=== PATIENT | female | born 1995 | race Caucasian/White ===

== ENCOUNTER → 2022-12-13 | Outpatient (CLI) | payer OTHER, SELFPAY ==
--- NOTE | 2022-12-13 14:47 | US_ITS ---
INDICATION: viability EXAMINATION: Ultrasound US OB Less Than 14 Weeks TECHNIQUE: Transabdominal pelvic ultrasound was performed. Grayscale, spectral waveform, and color flow Doppler evaluation of the adnexa. COMPARISON: None. LMP: [10/09/2022 Beta-hCG: Unknown FINDINGS: UTERUS: 10.2 x 7.4 x 6.2 cm. RIGHT OVARY: Not visualized. LEFT OVARY: 2.5 x 2.3 x 1.9 cm. Normal. FREE FLUID: None. INTRAUTERINE GESTATIONAL SAC: Single. YOLK SAC: Identified POLE: Identified CRL 2.8 cm. ESTIMATED GESTATION AGE: 9 weeks 3 days. HEART MOTION: 180 bpm. PLACENTA: Not visualized due to age. SUBCHORIONIC HEMORRHAGE: None. AMNIOTIC FLUID: Qualitatively normal. US/Init OB < 14Wks US IMPRESSION: Single live intrauterine . Estimated gestational age is 9 weeks 3 days with MARKELL 07/15/2023. Electronically Signed: Nicholas Bryant MD at 16:35 EDT ,
== END | disposition home or self-care (01) ==
LOC: US 14:46
PROVIDERS: PCP Family Medicine; Referring Provider Obstetrics & Gynecology; Visit Provider Obstetrics & Gynecology
DX: Z34.90 Encounter for supervision of normal pregnancy, unspecified, unspecified trimester (principal)
CPT/HCPCS: 76801

== ENCOUNTER → 2022-12-18 | Outpatient (CLI) | payer OTHER, SELFPAY ==
[2022-12-21 14:17] LABS: Chlamydia By Nucleic Acid AMP Negative (Negative); Gonococcus By Nucleic Acid AMP Negative (Negative)
[2022-12-24 11:39] LABS: HPV Reflexed? NOT INDICATED
== END | disposition home or self-care (01) ==
PROVIDERS: PCP Family Medicine; Referring Provider Obstetrics & Gynecology; Visit Provider Obstetrics & Gynecology
DX: Z34.90 Encounter for supervision of normal pregnancy, unspecified, unspecified trimester (principal)
CPT/HCPCS: 87086; 87088; 87491; 87591; 88175; G0145

== ENCOUNTER → 2022-12-18 | Outpatient (CLI) | payer OTHER, SELFPAY ==
[2022-12-18 11:24] LABS: Absolute Lymphocyte Count 1.83 X10^3/uL (0.83-4.51); Absolute Neutrophil Count 7.6 X10^3/uL (2.0-7.7); Basophil# 0.04 X10^3/uL; Basophil% 0.4 % (0-1); Eosinophil# 0.06 X10^3/uL; Eosinophils% 0.6 % (0-5); Hematocrit 44.3 % (37-47); Hemoglobin 14.8 g/dL (12.0-15.0); Lymphocyte # 1.83 X10^3/ul (0.83-4.51); Lymphocyte % 18.1 % (19-41); Mean Corp Hgb Conc 33.4 g/dL (32-36); Mean Corpuscular Hgb 28.9 pg (27.0-32.0); Mean Corpuscular Volume 86.5 fL (81-99); Mean Platelet Vol. 11.2 fl (6.2-12.0); Monocyte# 0.51 X10^3/uL; NRBC Flagged by Analyzer 0 % (0-5); Neutrophil # 7.64 X10^3/uL (2.7-7.7); Neutrophil % 75.6 % (47-70); Platelet Count 251 K/mm3 (150-450); RBC Distribution Width CV 12.9 % (11.6-14.6); RBC Distribution Width SD 40.6 fl (35.1-43.9); Red Blood Count 5.12 M/mm3 (4.2-5.4); White Blood Count 10.1 K/mm3 (4.4-11.0)
[2022-12-18 12:09] LABS: NATERA MAILED SPECIMEN
[2022-12-18 13:12] LABS: HIV - WCH Non-Reactive (Nonreactive); Hepatitis B Surface Antigen Non-Reactive (Nonreactive); Hepatitis C Antibody Non-Reactive (Nonreactive); Rubella IgG Reactive (Nonreactive); Syphilis Antibodies Non-reactive
== END | disposition home or self-care (01) ==
LOC: LAB 11:05
PROVIDERS: PCP Family Medicine; Referring Provider Obstetrics & Gynecology; Visit Provider Obstetrics & Gynecology
DX: Z34.81 Encounter for supervision of other normal pregnancy, first trimester (principal); Z31.430 Encounter of female for testing for genetic disease carrier status for procreative management
CPT/HCPCS: 36415; 85025; 86703; 86762; 86780; 86803; 86850; 86900; 86901; 87340

== ENCOUNTER → 2023-04-09 | Outpatient (CLI) | payer OTHER, SELFPAY ==
[2023-04-09 15:39] LABS: Absolute Lymphocyte Count 2.11 X10^3/uL (0.83-4.51); Absolute Neutrophil Count 10.2 X10^3/uL (2.0-7.7); Basophil# 0.05 X10^3/uL; Basophil% 0.4 % (0-1); Eosinophil# 0.07 X10^3/uL; Eosinophils% 0.5 % (0-5); Hematocrit 38.2 % (37-47); Hemoglobin 12.4 g/dL (12.0-15.0); Lymphocyte # 2.11 X10^3/ul (0.83-4.51); Lymphocyte % 15.9 % (19-41); Mean Corp Hgb Conc 32.5 g/dL (32-36); Mean Corpuscular Hgb 29.4 pg (27.0-32.0); Mean Corpuscular Volume 90.5 fL (81-99); Mean Platelet Vol. 11.5 fl (6.2-12.0); Monocyte# 0.73 X10^3/uL; Monocyte% 5.5 % (0-10); NRBC Flagged by Analyzer 0 % (0-5); Neutrophil # 10.18 X10^3/uL (2.7-7.7); Neutrophil % 76.9 % (47-70); Platelet Count 211 K/mm3 (150-450); RBC Distribution Width CV 13.5 % (11.6-14.6); RBC Distribution Width SD 44.5 fl (35.1-43.9); Red Blood Count 4.22 M/mm3 (4.2-5.4); White Blood Count 13.3 K/mm3 (4.4-11.0)
[2023-04-09 16:51] LABS: Glucose Challenge Gest 1H 50g 118 mg/dL (70-140)
[2023-04-09 17:37] LABS: HIV - WCH Non-Reactive (Nonreactive); Syphilis Antibodies Non-reactive
== END | disposition home or self-care (01) ==
LOC: LAB 15:11
PROVIDERS: PCP Family Medicine; Visit Provider Nurse Practitioner Women's Health
DX: Z34.90 Encounter for supervision of normal pregnancy, unspecified, unspecified trimester (principal)
CPT/HCPCS: 36415; 82950; 85025; 86703; 86780

== ENCOUNTER 2023-04-21 18:10 | Outpatient (CLI) | payer OTHER, SELFPAY ==
[2023-04-21 18:27] VITALS: BMI 33.0
[2023-04-21 18:28] VITALS: BP 125/75; PULSE 126; PULSE 127; O2SAT 97
[2023-04-21 18:31] VITALS: BP 125/75; PULSE 120; TEMP 37.6; O2SAT 97
[2023-04-21 18:33] VITALS: PULSE 123; O2SAT 96
[2023-04-21 18:38] VITALS: PULSE 121; O2SAT 96
[2023-04-21 19:01] LABS: Mucous, Urine 0 SEEN /hpf (<or=2+); Red Blood Cells-Urine 0 SEEN /hpf (0-5)
[2023-04-21 19:03] LABS: Color, Urine Yellow (Yellow); Glucose, Dipstick Normal (Normal); Ketone-Dipstick Negative (Negative); Leukocyte Esterase-Dipstick Negative /ul (Negative); Nitrite-Dipstick Negative (Negative); Occult Blood-Urine Negative /ul (Negative); Protein-Dipstick 15 mg/dl (Negative); Urine Bilirubin Dipstick Negative (Negative); Urine Clarity Clear (Clear); Urine Urobilinogen Normal (Normal)
[2023-04-21 19:12] LABS: Bacteria 1+ /hpf (None Seen); Squamous Epithelial Cells - UA 0-5 SEEN /hpf (5-10); White Blood Cells 0-5 SEEN /hpf (0-5)
[2023-04-21] MEDS: Lactated Ringers 1,000 ML 999 ML IV (19:14)
[2023-04-21 19:29] LABS: Fetal Fibronectin Negative; Record Kit Lot#, fFN E3050
[2023-04-21 19:29] LABS: Absolute Lymphocyte Count 0.44 X10^3/uL (0.83-4.51); Absolute Neutrophil Count 9.2 X10^3/uL (2.0-7.7); Basophil# 0.02 X10^3/uL; Basophil% 0.2 % (0-1); Differential Indicated SCAN CRITERIA MET; Eosinophil# 0.03 X10^3/uL; Eosinophils% 0.3 % (0-5); Hematocrit 36.8 % (37-47); Hemoglobin 12.6 g/dL (12.0-15.0); Lymphocyte # 0.44 X10^3/ul (0.83-4.51); Lymphocyte % 4.2 % (19-41); Mean Corp Hgb Conc 34.2 g/dL (32-36); Mean Corpuscular Hgb 30.6 pg (27.0-32.0); Mean Corpuscular Volume 89.3 fL (81-99); Mean Platelet Vol. 11.6 fl (6.2-12.0); Monocyte# 0.81 X10^3/uL; Monocyte% 7.7 % (0-10); NRBC Flagged by Analyzer 0 % (0-5); Neutrophil # 9.18 X10^3/uL (2.7-7.7); POSITIVE DIFFERENTIAL YES; Platelet Count 145 K/mm3 (150-450); RBC Distribution Width CV 13.7 % (11.6-14.6); RBC Distribution Width SD 44.8 fl (35.1-43.9); Red Blood Count 4.12 M/mm3 (4.2-5.4); White Blood Count 10.5 K/mm3 (4.4-11.0)
--- NOTE | 2023-04-21 19:54 | US_ITS ---
EXAM: US RETROPERITONEAL LIMITED, RENAL CLINICAL INDICATION: rule out kidney stones, lower back pain consistent TECHNIQUE: Limited grayscale and color Doppler sonographic evaluation of the retroperitoneum was performed. COMPARISON: No relevant prior studies available. FINDINGS: RIGHT KIDNEY: The right kidney measures 12.5 cm in length. No hydronephrosis. No shadowing calculus. No perinephric collection is demonstrated. LEFT KIDNEY: The left kidney measures 13.2 cm in length. No hydronephrosis. No shadowing calculus. No perinephric collection is demonstrated. BLADDER: The ureteral jets are not visualized. Urinary bladder appears within normal limits. US/Kidney and Bladder IMPRESSION: No evidence of urolithiasis or hydronephrosis. Normal appearance of the bilateral kidneys. Electronically Signed: Abbe Duran DO at 21:58 EST ,
[2023-04-21 20:04] VITALS: TEMP 37.1
[2023-04-21 20:04] LABS: Differential Comment SCANNED
[2023-04-21 20:05] VITALS: BP 133/74; PULSE 113
--- NOTE | 2023-04-21 20:14 | OB.TRI.HP_ITS ---
HPI - General General Date of Service: 04/21/23 Chief Complaint: lower back pain HPI Narrative MIMI LINN, is a 27 F who presents G1 at 27.5 with worsening lower back pain throughout the day. has been having nausea and vomiting due to pain, body aches. taking 1300mg of tylenol q8 hours without relief, heating pad mildly helping. not able to get comfortable throughtout the day. active fetus. no lof/vb Maternal Data Information MARKELL Calculator Estimated Delivery Date Method Current WG Current Estimate 07/16/23 LMP (Certain) 27w 5d Other Estimates 07/15/23 Ultrasound #1 27w 6d PFSH PFSH Medical History Family history of breast cancer Home Medications multivit-min no.71-iron fum 28 mg-folate no.1 1 mg-dha 300 mg capsule (PNV- [place]) 1 cap PO DAILY 12/10/22 [History Last Taken 04/21/23 08:00] sertraline 25 mg tablet 25 mg PO DAILY 12/10/22 [History Last Taken 04/21/23 08:00] cyclobenzaprine 10 mg tablet 10 mg PO TID PRN muscle spasm #30 tabs 04/21/23 [Rx Last Taken Unknown] Allergy/AdvReac Type Severity Reaction Status Date / Time No Known Allergies Allergy Verified 04/21/23 18:33 Family History Mother Breast cancer, Onset Age: 41 Surgical History [place] teeth extracted Social History adopted: No household members: spouse current occupational status: employed current occupation: [employer] current occupational exposures/hazards: No pets and animals: Yes pets and animals: dog(s) history of recent travel: No sexually active: Yes Smoking Status: Never smoker alcohol intake: never substance use type: does not use well-balanced diet: daily or most days caffeine: Yes Type: carbonated beverages Number of servings: 1 eating out: 1-3 times/week during the past year weight has: remained stable what type of physical activity do you participate in: walking frequency: 1-2 times per week duration: 30-45 minutes/day paula/spiritism: None seatbelt use: always do you feel safe at home: Yes 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 1 Elective abortions Hx Para 0 Spontaneous abortions Hx # Term Pregnancies Ectopic pregnancies Hx # Pregnancies Multiple births # of living children Visit Details Expected Delivery Route/Plan Labor Preferences- CB/BF classes: [] labor support person: [] labor intervention preferences: [] pain management options preferred: [] cut cord/dad catch: [] : [] PP control planned: [] discussed possible routes of delivery and associated risks: [] special requests: [] Plans Covid status: [] Flu vaccine: given Tdap vaccine: [] Rhogam: NA LARC form signed: [] Problem list reviewed and updated with the most current plan of care details and appropriate orders placed. Relevant counseling for the gestational age provided. Continue routine care and follow up unless otherwise noted in visit notes/problem list details OB Flowsheet Initial Weight: Not Recorded Date -?-?-?-?-?-?-?-?-?-?-?-?- EGA Weight BP Urine Prot -?-?-?-?-?-?-?-?-?-?-?-?- Glucose FHR FuHt Pres Dilation -?-?-?-?-?-?-?-?-?-?-?-?- Effaced St Visit Note 12/18/22 -?-?-?-?-?-?-?-?-?-?-?-?- 10w 0d 180 lb 8 oz 128/84 -?-?-?-?-?-?-?-?-?-?-?-?- -?-?-?-?-?-?-?-?-?-?-?-?- JV- CRL measurin g 32.1mm equals to 10weeks 1 day. sending for formal scan. plan NIPT and carrier screen. JV- CRL measuring 32.1mm equ als to 10weeks 1 day. + FHT seen. sending for formal scan. plan NIPT and carrier screen. 01/15/23 -?-?-?-?-?-?-?-?-?-?-?-?- 14w 0d 181 lb 119/76 Negative -?-?-?-?-?-?-?-?-?-?-?-?- Negative 158 -?-?-?-?-?-?-?-?-?-?-?-?- JV- no lof, vagi nal bleeding, or cramping. 02/10/23 -?-?-?-?-?-?-?-?-?-?-?-?- 17w 5d 190 lb 118/64 Negative -?-?-?-?-?-?-?-?-?-?-?-?- Negative 146 -?-?-?-?-?-?-?-?-?-?-?-?- MH-No Vb, LOF. N o flutters yet. flu vaccine 03/12/23 -?-?-?-?-?-?-?-?-?-?-?-?- 22w 0d 201 lb 2 oz 118/82 Nega tive -?-?-?-?-?-?-?-?-?-?-?-?- Negative 151 -?-?-?-?-?-?-?-?-?-?-?-?- MH-No VB, LOF. G ood FM. Nausea resolved. 04/09/23 -?-?-?-?-?-?-?-?-?-?-?-?- 26w 0d 212 lb 6 oz 135/83 127/83 Negative -?-?-?-?-?-?-?-?-?-?-?-?- Negative 150 -?-?-?-?-?-?-?-?-?-?-?-?- JV- glucose test done today. pt complains of tailbone pain. recommend chiropractor evaluation because appears more to be located on sacrum. will call with results when in. Physical Exam Const alert General Appearance: in distress Positive for moderate HEENT Mouth: dry mucous membranes Eyes PERRL Resp normal respiratory effort and no retractions Cardio Rate: tachycardic GI normal to inspection, nondistended, normoactive bowel sounds external exam normal, appearance of the vagina normal and appearance of the cervix normal Manual OB Exam: dilated 0, effaced 0 and station high and -4 Back/Spine no CVA tenderness, normal ROM and normal to inspection Extremity normal to inspection and no calf tenderness Skin no rashes or lesions noted Neuro moves all extremities Psych mental status grossly normal NST FHR Rate Baby B Baseline: 155 Variability:: Moderate Accelerations:: 10 x 10 Decelerations:: None NST Reactive:: Yes FHR Category:: Category I Uterine Activity:: none Assessment & Plan (1) Lower back pain: COMMENT: renal ultrasound- normal urine dip negative morphine 2mg d/c home with flexeril (2) Dehydration: COMMENT: LR bolus, followed by 125ml/hr (3) Nausea: COMMENT: zofran PLAN: Plan Patient presents for triage evaluation secondary to lower back pain. cervix long, thick/closed. no contractions noted. renal ultrasound ordered to r/o renal calculi. morphine IV given x1 for pain management and IV fluids for tachycardia. FHT: Moderate variability reactive no decelerations category I tracing [place]: no Contractions Assessment and plan: Reactive NST, reassuring maternal and status patient discharged to home to follow-up in office. flexeril 10mg Rx sent to outpt pharmacy. See problem list details for additional plan information. Charges/Coding Visit Charges Office Visits / Consults: 77368 OV L3 Est Procedures Urinary/Genital 52xxx-59xxx: 65795-03 non-stress test Interp
[2023-04-21] MEDS: Lactated Ringers 1,000 ML 125 ML IV (20:16)
[2023-04-21] MEDS: Morphine 2 MG/ML Syringe IV (20:16)
[2023-04-21] MEDS: cycloBENZAPRine HCl 10 MG Tablet PO (22:16)
== END 2023-04-21 22:30 | disposition home or self-care (01) ==
LOC: WPOUT 18:17 → WP 18:17
PROVIDERS: PCP Family Medicine; Referring Provider Registered Nurse; Visit Provider Registered Nurse
DX: O99.891 Other specified diseases and conditions complicating pregnancy (principal); M54.50 Low back pain, unspecified; Z3A.27 27 weeks gestation of pregnancy; R11.0 Nausea; O99.282 Endocrine, nutritional and metabolic diseases complicating pregnancy, second trimester; E86.0 Dehydration
CPT/HCPCS: 96374; 96361; 36415; 59025; 59050; 76770; 81001; 82731; 85025; J7120

== ENCOUNTER → 2023-06-18 | Outpatient (CLI) | payer OTHER, SELFPAY ==
--- OUTSIDE RECORDS SUMMARY | 2023-06-18 17:15 | XMS RPT_ITS | CCD ---
Author Name Unknown Address [address] [place] [address] Organization [facility] Care Team Providers Care Senior National Account Manager Name Role Phone [facility] Unavailable Unavaila ble NILS, [facility] Unavailable Unavaila ble NILS, [facility] Unavailable Unavaila ble JEREMY, KERRIE E Unavailable Unavailable PROVIDER, UNKNOWN Unavailable Unavailable PROVIDER, UNKNOWN Unavailable Unavailable PROVIDER, UNKNOWN Unavailable Unavailable NO PRIMARY CARE, Primary Care Unavailable TSAN LOWERY Attending Unavailable SHIRLENE HILL Referring Unavailab le Results Test Name Value Interpretation Reference Range Facil ity Encounters Encounter Date Encounter Type Care Provider Facility Start: 02-25-2023 End: 02-25-2023 ambulatory MD NO PRIMARY CARE [facility] Start: 04-17-2018 End: 04-17-2018 Patient encounter procedure [facility] Payers Date Payer Category Payer Unknown [id number] [id number] Unknown [id number] Summary Purpose Family History No Family History Records FoundNo Family History Records FoundNo Family History Records FoundNo Family History Records Found Advance Directives No Advanced Directives Records FoundNo Advanced Directives Records FoundNo Advanced Directives Records FoundNo Advanced Directives Records Found Additional Source Comments INFORMATION SOURCE (unrecogn ized section and content) DATE CREATED AUTHOR AUTHOR'S ORGANIZ ATION 04/14/2020 [facility] DATE CREATED AUTHOR AUTHOR'S ORGANIZ ATION 04/01/2021 [facility] DATE CREATED AUTHOR AUTHOR'S ORGANIZ ATION 03/05/2023 [facility] FOR RECORDS PERTAINING TO PATIENTS WHO ARE OR HAVE BEEN ENROLLED IN A CHEMICAL DEPENDENCY/SUBSTANCEABUSE PROGRAM, SOME INFORMATION MAY BE OMITTED. This clinical summary was aggregated from multiple sources. Caution should be exercised in using it in the provision of clinical care. This summary normalizes information from multiple sources, and as a consequence, information in this document may materially change the coding, format and clinical context of patient data. In addition, data may be omitted in some cases. CLINICAL DECISIONS SHOULD BE BASED ON THE PRIMARY CLINICAL RECORDS. [facility] [employer] [facility]. provides no warranty or guarantee of the accuracy or completeness of information in this document.
== END | disposition home or self-care (01) ==
LOC: LABSPEC 17:02
PROVIDERS: PCP Family Medicine; Referring Provider Obstetrics & Gynecology; Visit Provider Obstetrics & Gynecology
DX: O09.90 Supervision of high risk pregnancy, unspecified, unspecified trimester (principal); Z3A.00 Weeks of gestation of pregnancy not specified
CPT/HCPCS: 87077; 87081; 87186

== ENCOUNTER 2023-07-01 17:20 | Inpatient (IN) | payer OTHER, SELFPAY ==
[2023-07-01] VITALS (9 sets, daily range): BP systolic 120–142; BP diastolic 71–91; PULSE 76–90; TEMP 36.6–37; O2SAT 98; BMI 35.9
[2023-07-01 16:54] LABS: Hematocrit 38.9 % (37-47); Hemoglobin 13.1 g/dL (12.0-15.0); Mean Corp Hgb Conc 33.7 g/dL (32-36); Mean Corpuscular Hgb 29.3 pg (27.0-32.0); Platelet Count 142 K/mm3 (150-450); RBC Distribution Width CV 14.3 % (11.6-14.6); RBC Distribution Width SD 44.5 fl (35.1-43.9); Red Blood Count 4.47 M/mm3 (4.2-5.4); White Blood Count 12.5 K/mm3 (4.4-11.0)
[2023-07-01 17:08] LABS: AST(SGOT) 14 U/L (15-37); Alanine Aminotransfer ALT/SGPT 17 U/L (13-56); Creatinine, Serum 0.91 mg/dL (0.55-1.02); EST Glomerular Filtration Rate 79 mL/min (>60); Est Glom Filt Rate - Afr Amer 95 mL/min (>60); Estimated Creatinine Clearance 116.27 ml/min; Protein, Urine (Random) 10.7 mg/dL (<11.9); Protein:Creat Ratio 309 mg/g CRE (0-200); Uric Acid 5.4 mg/dL (2.6-6.0)
--- NOTE | 2023-07-01 17:29 | HP.PCM.OB_ITS ---
HPI - General General Date of Admission: 07/01/23 Date of Service: 07/01/23 HPI Narrative MIMI LINN, is a 27 F who presents to the unit from the office for elevated bp, intermittent headache, and swelling. Bp in office ranged from 140/80-160/100s. Maternal Data Information MARKELL Calculator Estimated Delivery Date Method Current WG Current Estimate 07/16/23 LMP (Certain) 37w 6d Other Estimates 07/15/23 Ultrasound #1 38w 0d Final MARKELL: 07/16/23 Final MARKELL Source: US >20 weeks Gestational age: 37.6 weeks [facility] Medical History Family history of breast cancer Home Medications multivit-min no.71-iron fum 28 mg-folate no.1 1 mg-dha 300 mg capsule (PNV- [place]) 1 cap PO DAILY 12/10/22 [History Last Taken 04/21/23 08:00] sertraline 25 mg tablet 25 mg PO DAILY 12/10/22 [History Last Taken 04/21/23 08:00] cyclobenzaprine 10 mg tablet 10 mg PO TID PRN muscle spasm #30 tabs 04/21/23 [Rx Last Taken Unknown] breast pump #1 ea 05/07/23 [Rx Last Taken Unknown] Allergy/AdvReac Type Severity Reaction Status Date / Time No Known Allergies Allergy Verified 07/01/23 16:10 Family History Mother Breast cancer, Onset Age: 41 Surgical History [place] teeth extracted Social History adopted: No household members: spouse current occupational status: employed current occupation: [employer] current occupational exposures/hazards: No pets and animals: Yes pets and animals: dog(s) history of recent travel: No sexually active: Yes Smoking Status: Never smoker alcohol intake: never substance use type: does not use well-balanced diet: daily or most days caffeine: Yes Type: carbonated beverages Number of servings: 1 eating out: 1-3 times/week during the past year weight has: remained stable what type of physical activity do you participate in: walking frequency: 1-2 times per week duration: 30-45 minutes/day paula/orthodox: None seatbelt use: always do you feel safe at home: Yes 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 Elective abortions Hx Para 0 Spontaneous abortions Hx # Term Pregnancies Ectopic pregnancies Hx # Pregnancies Multiple births # of living children Visit Details Expected Delivery Route/Plan Labor Preferences- CB/BF classes: done labor support person: Yandel labor intervention preferences: [] pain management options preferred: epidural cut cord/dad catch: cord : yes PP control planned: discussed discussed possible routes of delivery and associated risks: [] special requests: [] Plans Covid status: [] Flu vaccine: given Tdap vaccine: given Rhogam: NA LARC form signed: yes movement and labor precautions reviewed. Problem list reviewed and updated with the most current plan of care details and appropriate orders placed. Relevant counseling for the gestational age provided. Continue routine care and follow up unless otherwise noted in visit notes/problem list details OB Flowsheet Initial Weight: Not Recorded Date -?-?-?-?-?-?-?-?-?-?-?-?- EGA Weight BP Urine Prot -?-?-?-?-?-?-?-?-?-?-?-?- Glucose FHR FuHt Pres Dilation -?-?-?-?-?-?-?-?-?-?-?-?- Effaced St Visit Note 12/18/22 -?-?-?-?-?-?-?-?-?-?-?-?- 10w 0d 180 lb 8 oz 128/84 -?-?-?-?-?-?-?-?-?-?-?-?- -?-?-?-?-?-?-?-?-?-?-?-?- JV- CRL measurin g 32.1mm equals to 10weeks 1 day. sending for formal scan. plan NIPT and carrier screen. JV- CRL measuring 32.1mm equ als to 10weeks 1 day. + FHT seen. sending for formal scan. plan NIPT and carrier screen. 01/15/23 -?-?-?-?-?-?-?-?-?-?-?-?- 14w 0d 181 lb 119/76 Negative -?-?-?-?-?-?-?-?-?-?-?-?- Negative 158 -?-?-?-?-?-?-?-?-?-?-?-?- JV- no lof, vagi nal bleeding, or cramping. 02/10/23 -?-?-?-?-?-?-?-?-?-?-?-?- 17w 5d 190 lb 118/64 Negative -?-?-?-?-?-?-?-?-?-?-?-?- Negative 146 -?-?-?-?-?-?-?-?-?-?-?-?- MH-No Vb, LOF. N o flutters yet. flu vaccine 03/12/23 -?-?-?-?-?-?-?-?-?-?-?-?- 22w 0d 201 lb 2 oz 118/82 Nega tive -?-?-?-?-?-?-?-?-?-?-?-?- Negative 151 -?-?-?-?-?-?-?-?-?-?-?-?- MH-No VB, LOF. G ood FM. Nausea resolved. 04/09/23 -?-?-?-?-?-?-?-?-?-?-?-?- 26w 0d 212 lb 6 oz 135/83 127/83 Negative -?-?-?-?-?-?-?-?-?-?-?-?- Negative 150 -?-?-?-?-?-?-?-?-?-?-?-?- JV- glucose test done today. pt complains of tailbone pain. recommend chiropractor evaluation because appears more to be located on sacrum. will call with results when in. 05/07/23 -?-?-?-?-?-?-?-?-?-?-?-?- 30w 0d 216 lb 4 oz 128/85 Nega tive -?-?-?-?-?-?-?-?-?-?-?-?- Negative 135 30 -?-?-?-?-?-?-?-?-?-?-?-?- JV- pt was hospi talized over night for low back pain that finally resolved with flexeril. this was last week. She has had no residual pain. breast pump rx given. tdap given, larc signed. 05/21/23 -?-?-?-?-?-?-?-?-?-?-?-?- 32w 0d 217 lb 6 oz 217 lb 120/77 120/77 Negative -?-?-?-?-?-?-?-?-?-?-?-?- Negative 134 32 -?-?-?-?-?-?-?-?-?-?-?-?- JV- pt states ba ck pain is resolved completely. no lof, vaginal bleeding, or dec fm. 06/04/23 -?-?-?-?-?-?-?-?-?-?-?-?- 34w 0d 223 lb 6 oz 120/78 Nega tive -?-?-?-?-?-?-?-?-?-?-?-?- Negative 151 34 0 -?-?-?-?-?-?-?-?-?-?-?-?- MH-Had <1cm red spot of blood with wiping this Am. None since. No CTX. Good FM. Neg vaginal exam. Reassured. and reviewed bleeding precautions. 06/18/23 -?-?-?-?-?-?-?-?-?-?-?-?- 36w 0d 224 lb 8 oz 136/88 Nega tive -?-?-?-?-?-?-?-?-?-?-?-?- Negative 142 36 0 -?-?-?-?-?-?-?-?-?-?-?-?- MH-No VB, LOF. N o CTX. GBS done 06/24/23 -?-?-?-?-?-?-?-?-?-?-?-?- 36w 6d 227 lb 121/82 -?-?-?-?-?-?-?-?-?-?-?-?- 140 37 Cephalic 0 -?-?-?-?-?-?-?-?-?-?-?-?- SM- no vb lof go od fm no regular ctx 07/01/23 -?-?-?-?-?-?-?-?-?-?-?-?- 37w 6d 230 lb 166/105 147/95 Negative -?-?-?-?-?-?-?-?-?-?-?-?- Negative 155 37 Cephalic -?-?-?-?-?-?-?-?-?-?-?-?- kw-no vb/lof/reg ular contractions. GBS positive. more headaches over the last week to [facility] for labs and monitoring. NST FHR Rate Baby B Baseline: 130 Variability:: Moderate Accelerations:: 15 x 15 Decelerations:: None NST Reactive:: Yes FHR Category:: Category I Uterine Activity:: high frequency low amplitude cramping ROS Constitutional Constitutional: Reports headache(s); Denies change in weight, fatigue, fever(s), poor appetite or weakness Eyes Eyes: Denies blurry vision, change in vision, floaters, seeing flashes or spots in vision ENT HEENT: Denies dizziness, headache(s), loss taste/smell or sore throat Cardiovascular Cardiovascular: Denies chest pain, dizziness, dyspnea, irregular heart rhythm, lightheadedness, palpitations or rapid heart rate Respiratory/Chest Respiratory/Chest: Denies change in mental status, chest tightness, cough, dyspnea or breast pain Gastrointestinal Gastrointestinal: Denies anorexia, chewing difficulty, constipation, diarrhea or weight changes Genitourinary Genitourinary: Denies difficulty urinating, dysuria, flank pain, genital pain, urinary frequency or urinary urgency Musculoskeletal Musculoskeletal: Denies back pain, difficulty walking, extremity pain, joint pain, muscle cramps or muscle weakness Integumentary Integumentary: Denies lesions or unusual bruising Neurologic Neurologic: Denies abnormal movements, abnormal speech, dizziness, numbness, seizure-like activity, syncope or weakness Psychiatric Psychiatric: Denies behavioral changes, change in appetite, confusion, depression, homicidal ideation, suicidal ideation or suicidal thoughts Endocrine Endocrinology: Denies excessive sweating, polydipsia or polyuria Hematologic/Lymphatic Hematologic/Lymphatic: Denies anemia Allergic/Immunologic Allergic/Immunologic: Denies itchy eyes, lip swelling, throat swelling, tongue swelling or wheezing Vital Signs Vital Signs Vital Signs: 07/01/23 16:15 07/01/23 16:15 07/01/23 16:15 Temperature Temperature Source Pulse Rate 86 Blood Pressure 132/80 H BP Systolic 132 BP Diastolic 80 Pulse Ox 98 07/01/23 16:15 07/01/23 16:15 07/01/23 16:15 Temperature 97.9 F Temperature Source Temporal Pulse Rate 83 Blood Pressure BP Systolic BP Diastolic Pulse Ox 07/01/23 16:30 07/01/23 16:30 07/01/23 16:46 Temperature Temperature Source Pulse Rate 83 Blood Pressure 134/79 H 123/78 H BP Systolic 134 123 BP Diastolic 79 78 Pulse Ox 07/01/23 16:46 07/01/23 17:01 07/01/23 17:01 Temperature Temperature Source Pulse Rate 76 80 Blood Pressure 132/75 H BP Systolic 132 BP Diastolic 75 Pulse Ox 07/01/23 17:16 07/01/23 17:16 Temperature Temperature Source Pulse Rate 77 Blood Pressure 120/71 BP Systolic 120 BP Diastolic 71 Pulse Ox Weight Weight: 229 lb 9.6 oz Body Mass Index (BMI) 35.9 Physical Exam Const alert, oriented x3 and no apparent distress General Appearance: cooperative Orientation / Consciousness: awake HEENT normocephalic Neck full ROM Lymph Lymphatic: no lymphadenopathy noted Chest inspection of chest normal Resp normal respiratory effort and normal air movement Effort and Inspection: able to speak in complete sentences and symmetric chest movement GI soft to palpation and non-tender Inspection: gravid Palpation: soft; Negative for tender external exam normal Manual OB Exam: dilated 0 Back/Spine normal to inspection Extremity normal to inspection and full ROM Skin no rashes or lesions noted Psych mental status grossly normal Appearance: grossly normal Speech: normal speech Labs Labs Labs: Blood Type A POSITIVE Antibody Screen NEGATIVE Hct 38.9 % (37-47) Hgb 13.1 g/dL (12.0-15.0) Obstetrics Ultrasound Syphilis Total Ab Non-reactive Rubella IgG Antibody Reactive (Nonreactive) Hep Bs Antigen Non-Reactive (Nonreactive) Hepatitis C Antibody Non-Reactive (Nonreactive) Chlamydia DNA (HARITHA) Negative (Negative) N.gonorrhoeae DNA (HARITHA) Negative (Negative) HIV 1&2 Antibody Non-Reactive (Nonreactive) Glucose 1 Hr 50 gm 118 mg/dL (70-140) Assessment & Plan (1) Encounter for induction of labor: COMMENT: 37.6 mild pre eclampsia-cytotec, ryan bulb and pitocin PLAN: Patient presents IOL, plan management for with cytotec/ryan bulb/pitocin/AROM. Pain management: plans epidural. GBS positive-PCN. Management of any complications: mild preeclampsia I have reviewed the [facility] and made any clinically relevant updates. Discussed assessment and plan of care with Dr Chopra and Dr Le and both agree with above plan. (2) Thrombocytopenia affecting : (3) GBS (group B Streptococcus carrier), +RV culture, currently : COMMENT: treat in labor PLAN: PCN (4) Supervision of high-risk : QUALIFIERS: Trimester: second trimester Qualified Code(s): O09.92 - Supervision of high risk , unspecified, second trimester COMMENT: [id number], MARKELL 07/16/23, boy Crew (5) : QUALIFIERS: Weeks of gestation: 37 weeks Qualified Code(s): Z3A.37 - 37 weeks gestation of COMMENT: NIPT low risk, carrier neg. ntd declined nl anatomy. (6) Anxiety: Charges/Coding Multi Select Codes Urinary/Genital Urinary/Genital CPT Codes: No Charge
--- OUTSIDE RECORDS SUMMARY | 2023-07-01 17:40 | XMS RPT_ITS | CCD ---
Author Name Unknown Address [address] [place] [address] Organization [facility] Care Team Providers Care Glove Finisher Name Role Phone [facility] Unavailable Unavaila ble NILS, [facility] Unavailable Unavaila ble NILS, [facility] Unavailable Unavaila ble JEREMY, KERRIE E Unavailable Unavailable PROVIDER, UNKNOWN Unavailable Unavailable PROVIDER, UNKNOWN Unavailable Unavailable PROVIDER, UNKNOWN Unavailable Unavailable NO PRIMARY CARE, Primary Care Unavailable STAN LOWERY Attending Unavailable SHIRLENE HILL Referring Unavailab le Results Test Name Value Interpretation Reference Range Facil ity Encounters Encounter Date Encounter Type Care Provider Facility Start: 02-25-2023 End: 02-25-2023 ambulatory MD NO PRIMARY CARE [facility] Start: 04-17-2018 End: 04-17-2018 Patient encounter procedure [facility] Payers Date Payer Category Payer Unknown [id number] [id number]. [id number] Unknown [id number] Summary Purpose Family History No Family History Records FoundNo Family History Records FoundNo Family History Records FoundNo Family History Records Found Advance Directives No Advanced Directives Records FoundNo Advanced Directives Records FoundNo Advanced Directives Records FoundNo Advanced Directives Records Found Additional Source Comments INFORMATION SOURCE (unrecogn ized section and content) DATE CREATED AUTHOR AUTHOR'S ORGANIZ ATION 04/14/2020 [facility] DATE CREATED AUTHOR AUTHOR'S ORGANIZ ATION 04/01/2021 [facility] DATE CREATED AUTHOR AUTHOR'S ORGANIZ ATION 03/05/2023 [facility] FOR RECORDS PERTAINING TO PATIENTS WHO ARE [...] BE BASED ON THE PRIMARY CLINICAL RECORDS. [facility] [employer] [facility]. provides no warranty or guarantee of the accuracy or completeness of information in this document.
[2023-07-01 17:55] LABS: Absolute Lymphocyte Count 1.57 X10^3/uL (0.83-4.51); Absolute Neutrophil Count 10.4 X10^3/uL (2.0-7.7); Basophil# 0.05 X10^3/uL; Basophil% 0.4 % (0-1); Eosinophil# 0.04 X10^3/uL; Eosinophils% 0.3 % (0-5); Hematocrit 39.5 % (37-47); Lymphocyte # 1.57 X10^3/ul (0.83-4.51); Lymphocyte % 12.3 % (19-41); Mean Corp Hgb Conc 32.9 g/dL (32-36); Mean Corpuscular Hgb 28.6 pg (27.0-32.0); Mean Platelet Vol. 13.7 fl (6.2-12.0); Monocyte# 0.72 X10^3/uL; Monocyte% 5.6 % (0-10); NRBC Flagged by Analyzer 0 % (0-5); Neutrophil # 10.38 X10^3/uL (2.7-7.7); Platelet Count 143 K/mm3 (150-450); RBC Distribution Width CV 14.3 % (11.6-14.6); RBC Distribution Width SD 44.5 fl (35.1-43.9); Red Blood Count 4.54 M/mm3 (4.2-5.4); White Blood Count 12.8 K/mm3 (4.4-11.0)
[2023-07-01] MEDS: Lactated Ringers 1,000 ML 50 ML IV (17:55)
[2023-07-01] MEDS: LACTATED RINGERS 500 ML 999 ML IV (17:57)
[2023-07-01 18:26] LABS: Syphilis Antibodies Non-reactive
[2023-07-01] MEDS: miSOPROStol 25 MCG TABLET VAGINAL (19:19)
[2023-07-02] VITALS (50 sets, daily range): BP systolic 103–171; BP diastolic 49–101; PULSE 61–119; RESP 18; TEMP 36.2–36.7; O2SAT 86–100
[2023-07-02] MEDS: Acetaminophen 500 MG Tablet PO ×3 (02:09→14:11)
[2023-07-02] MEDS: LACTATED RINGERS 500 ML 999 ML IV ×2 (02:11→04:44)
[2023-07-02] MEDS: 0.9% Normal Saline Single 100 ML IV.SOLN. INTRA-UTER (03:40)
--- NOTE | 2023-07-02 03:53 | PCM.PN.BLA ---
Progress Note Coping well with contractions current tracing: FHT: 140 Moderate variability reactive no decelerations category I tracing [place]: 1-4 minute moderate to strong Contractions Membranes:intact SVE:/-1 Ryan bulb inserted at this time. Unable to do another dose of Cytotec due to frequency and strength of contractions, Yin Score 4 A/P: Continue with position changes Start and titrate pitocin per protocol Epidural per anesthesia as desired PCN for GBS prophylaxis when ryan bulb out Anticipate Dr Chopra aware of above assessment and agrees with plan of care Assessment & Plan Assessment/Plan (1) Encounter for induction of labor: (2) Thrombocytopenia affecting : (3) GBS (group B Streptococcus carrier), +RV culture, currently : (4) Supervision of high-risk : QUALIFIERS: Trimester: second trimester Qualified Code(s): O09.92 - Supervision of high risk , unspecified, second trimester (5) : QUALIFIERS: Weeks of gestation: 37 weeks Qualified Code(s): Z3A.37 - 37 weeks gestation of (6) Anxiety: Multi Select Codes Urinary/Genital Urinary/Genital CPT Codes: No Charge
[2023-07-02] MEDS: fentaNYL-bupivacaine (epidural) 100 ML BAG EPIDURAL ×3 (05:45→15:04)
[2023-07-02] MEDS: Oxytocin 15 Units/NS 250ml 15 UNITS/250 ML IV.SOLN 2 UNITS IV (07:55)
[2023-07-02] MEDS: Lactated Ringers 1,000 ML 200 ML IV ×3 (07:59→16:43)
--- NOTE | 2023-07-02 08:30 | PN_ITS ---
Progress Note pt is comfortable with epidural and ryan is in place since 4 am. current tracing: FHT: Moderate variability reactive no decelerations category I tracing [place]: irregular Contractions cx still 1.5 and 60% effaced. bulb not ready to come out. A/P: mild pre-e plan to continue with pitocin and arom when able
[2023-07-02] MEDS: Ondansetron 4 MG/2 ML Vial IV (09:51)
[2023-07-02] MEDS: Penicillin G Pot 5,000,000 UNITS in 0.9% Normal Saline (100mL MB+) 100 ML 150 UNITS IV (11:23)
--- NOTE | 2023-07-02 13:04 | PN_ITS ---
Progress Note ryan is out and patient consents to arom. current tracing: FHT: Moderate variability reactive no decelerations category I tracing [place]: irregular Contractions Cx 3/60/-2, membranes ruptured with clear fluid and IUPC placed to better monitor contractions A/P: continue with pitocin.
[2023-07-02] MEDS: Penicillin G 3,000,000 Units 50 ML 100 UNITS IV (15:18)
--- NOTE | 2023-07-02 20:03 | PN_ITS ---
Progress Note pt now at 25 mu/min of pitocin. MVU's 180-200. pt is comfortable with epidural. current tracing: FHT: 125 Moderate variability reactive no decelerations category I tracing [place]: q 2-3 min Contractions cx: 3/80/-1 to 0 , cervical edema noted reviewed tracing abnormalities since last note: no changes A/P: failure to progress After discussing the patient's diagnosis and treatment plan options, patient wishes to proceed with surgical management. I have discussed with the patient the risks, benefits, and alternatives of the procedure which include but are not limited to risks of anesthesia, bleeding, infection, possible damage to bowel, bladder, or surrounding vasculature which could lead to additional surgery to evaluate any complications. Patient agrees to procedure and wishes to proceed with a primary section
[2023-07-02] MEDS: Sodium Citrate/Citric Acid 30 ML UDC PO (20:18)
[2023-07-02] MEDS: Cefazolin 2 GM in 0.9% Normal Saline (100mL Bag) 100 ML IV (20:41)
[2023-07-02] MEDS: Carboprost Tromethamine 250 MCG/ML Ampul IM (20:42)
[2023-07-02] MEDS: Azithromycin 500 MG in Dextrose 5%-Water (250mL Bag) 250 ML 250 MG IV (21:03)
--- NOTE | 2023-07-02 21:18 | EX.PCM.OBRPT ---
Assessment & Plan (1) Failure to progress in labor: (2) Encounter for induction of labor: COMMENT: 37.6 mild pre eclampsia-cytotec, ryan bulb and pitocin (3) Thrombocytopenia affecting : (4) GBS (group B Streptococcus carrier), +RV culture, currently : COMMENT: treat in labor (5) Supervision of high-risk : QUALIFIERS: Trimester: second trimester Qualified Code(s): O09.92 - Supervision of high risk , unspecified, second trimester COMMENT: [id number], MARKELL 07/16/23, boy Crew (6) : QUALIFIERS: Weeks of gestation: 37 weeks Qualified Code(s): Z3A.37 - 37 weeks gestation of COMMENT: NIPT low risk, carrier neg. ntd declined nl anatomy. (7) Anxiety: (8) Mild pre-eclampsia: Maternal Data Information MARKELL Calculator Estimated Delivery Date Method Current WG Current Estimate 07/16/23 LMP (Certain) 38w 0d Other Estimates 07/15/23 Ultrasound #1 38w 1d Final MARKELL: 07/16/23 Final MARKELL Source: LMP Gestational age: 38 weeks 0 days Details Operative Information Date of Procedure: 07/02/23 Pre-Operative Diagnosis: 27 y/o @ 38 weeks 0 days, mild pre-eclampsia, failure to progress Post-Operative Diagnosis: 27 y/o @ 38 weeks 0 days, mild pre-eclampsia, failure to progress Classification: GRACIE Procedure Type: low transverse Type of Anesthesia: Epidural Anesthesiologist: Jimmie Norton Antibiotic Given: Ancef 2 grams IV x1 and Zithromax 500 mg/5 mL X1 Drain: Ryan to straight drain Estimated Blood Loss: 1300cc Procedure Start Time: 20:43 Procedure Stop Time: 21:30 Time of Delivery: 20:47 Findings Description of Procedure: Procedure: The patient was brought to the operating room where epidural anesthesia was found to be adequate. She was prepped and draped in the normal sterile fashion and was placed in a dorsal supine position with a leftward tilt. Pfannenstiel skin incision was made with a scalpel and carried through to the underlying layers. The fascia was nicked in the midline and extended laterally using Russell scissors. The anterior aspect of the fascia was grasped with Kamryn clamps and the underlying rectus muscles dissected off using the Metzenbaum scissors. The inferior aspect the fascia was also grasped with Kamryn clamps and the underlying rectus muscle dissected off with the Metzenbaum scissors. The rectus muscles were in the midline. Peritoneum was entered sharply. The uterus was identified and a bladder blade was inserted into the abdomen. Bladder flap was created off the uterus using Metzenbaum scissors. A transverse incision was made with a scalpel and extended laterally manually. The infant's head was grasped with the help of my funeral assistant and fundal pressure the was delivered through the uterine incision without difficulty. The mouth and nares were bulb suctioned. After a 30 second delay the cord was clamped and cut. The infant was handed off to the awaiting virtual assistant for advertisers for routine assessment. Placenta was delivered manually without difficulty. The uterus was exteriorized and cleared of all clots and debris. Incision was closed with an 0 Vicryl suture in a running locked fashion. Second layer of 1-0 monocryl suture was used in imbricating manner and separate figure of 8 sutures were placed using monocryl were used to create excellent closure and hemostasis. The uterus was returned to the abdomen. The gutters were cleared of all clots and debris. The peritoneum was closed in a pursestring pattern using a 3-0 Vicryl suture. This muscle was reapproximated with a 3-0 Vicryl. The fascia was closed with an stratafix pds suture. Subcutaneous tissue layer was closed using a plain gut suture. The skin was closed with a 4-0 Monocryl subcuticular stitch. The skin was also sealed with surgical glue. The patient tolerated the procedure well sponge lap and needle counts were correct at each tissue closure plane and the patient is now being brought to the recovery room in stable condition Presentation: Positive for Vertex Amniotic Fluid Description: Clear Cord Vessel Description: 3 Vessels Cord Entanglement: Around neck x 2, loose Infant A Gender: Male (1 minute): 8 (5 minute): 9 Complications Risks of Surgery Discussed w/Patient: Bleeding, Anesthesia Risks, Infection, Need for Future C-Sections and Injury to surrounding structure(s) including bowel and bladder Admit VTE Documentation VTE Present on Admission: No VTE Mechan Device Prophylaxis: SCD's VTE Pharm Prophylaxis Ordered: Yes Multi Select Codes Urinary/Genital Urinary/Genital CPT Codes: 71047 Delivery [facility]
--- NOTE | 2023-07-02 21:25 | DCINST_ITS ---
Discharge Instructions Diet Discharge Diet: No restrictions Activity Discharge Activity: May Not Drive (for 2 weeks or while taking narcotic pain medications.), May Shower and May Take a Tub Bath (in 7 days.) May resume sexual activity in: 4-6 weeks Weight Bearing Status: Full weight bearing Lifting Restrictions: 20 pounds Dressing / Incision Call your doctor if your incision/area has: Continuous Slow Oozing, Sudden Increased Bleeding, Increased Pain/ Swelling, Increased Redness and Foul Smelling Discharge Call your doctor if you observe: Fever of 101 or Higher and Using more than 1 pad per hour Suture Line Care: Avoid Pulling/Pushing and Avoid Pinching/Bending Cleanse incision/area with: Soap & Water and Keep Dressing Clean & Dry Follow Up Care Please Follow Up With: Lindsay Maharaj DO When: Call [phone] to make an appointment for an incision check in 1-2 weeks. Test Results: Test results from this visit will be discussed in further detail at your follow- up appointment, if applicable. Discharge Plan Admission Admit Date/Time: 07/01/23 17:20 Primary Reason for Your Visit: section Attending Provider: iLndsay Maharaj Primary Care Provider: Sarika Key Discharge Orders/Prescriptions Prescriptions: New ibuprofen 800 mg tablet 800 mg PO Q8H PRN (Reason: pain) Qty: 30 0RF Continued sertraline 25 mg tablet 25 mg PO DAILY [facility] 28-1-300 mg capsule 1 cap PO DAILY (DME) breast pump Device See Rx Instructions .ROUTE .MEDSUPPLY Qty: 1 0RF Rx Instructions: As directed cyclobenzaprine 10 mg tablet 10 mg PO TID PRN (Reason: muscle spasm) Qty: 30 0RF Referrals / Follow Up: Sarika Key PA-C [Primary Care Provider] - Disposition Disposition (needs filled in before D/C Order can be placed): Home, Self Care
--- NOTE | 2023-07-02 21:40 | NURSING ---
called. updated by this RN, large cantelope sized blood clot expressed in OR. fundus is now firm lochia small. green chucks pad that was under pt in OR efqwqpx=089 cc. plan to draw stat CBC now in recovery and then one in the morning. update provider if pt is symptomatic and apply abd binder
[2023-07-02] MEDS: Oxytocin 15 Units/NS 250ml 15 UNITS/250 ML IV.SOLN 83 UNITS IV (21:46)
[2023-07-02 21:59] LABS: Absolute Lymphocyte Count 1.01 X10^3/uL (0.83-4.51); Absolute Neutrophil Count 20.7 X10^3/uL (2.0-7.7); Basophil# 0.05 X10^3/uL; Basophil% 0.2 % (0-1); Eosinophil# 0.01 X10^3/uL; Hemoglobin 10.9 g/dL (12.0-15.0); Lymphocyte # 1.01 X10^3/ul (0.83-4.51); Lymphocyte % 4.3 % (19-41); Mean Corp Hgb Conc 32.1 g/dL (32-36); Mean Corpuscular Hgb 28.7 pg (27.0-32.0); Mean Corpuscular Volume 89.5 fL (81-99); Mean Platelet Vol. 13.1 fl (6.2-12.0); Monocyte# 1.34 X10^3/uL; Monocyte% 5.8 % (0-10); NRBC Flagged by Analyzer 0 % (0-5); Neutrophil % 89.1 % (47-70); POSITIVE DIFFERENTIAL YES; Platelet Count 129 K/mm3 (150-450); RBC Distribution Width CV 14.6 % (11.6-14.6); White Blood Count 23.3 K/mm3 (4.4-11.0)
[2023-07-02 22:08] LABS: Differential Indicated SCAN CRITERIA MET
[2023-07-02] MEDS: Ketorolac 30 MG/ML Syringe IV (22:17)
[2023-07-02 22:18] LABS: Differential Comment SCANNED
[2023-07-03] VITALS (12 sets, daily range): BP systolic 117–134; BP diastolic 56–85; PULSE 64–117; RESP 16–18; TEMP 36.6–37; O2SAT 96–100
[2023-07-03] MEDS: Lactated Ringers 1,000 ML 100 ML IV (02:05)
[2023-07-03] MEDS: Acetaminophen 500 MG Tablet 1000 MG PO ×4 (03:11→21:22)
[2023-07-03] MEDS: Ketorolac 30 MG/ML Syringe IV ×2 (04:16→10:41)
[2023-07-03 06:41] LABS: Hematocrit 26.5 % (37-47); Hemoglobin 8.7 g/dL (12.0-15.0); Mean Corp Hgb Conc 32.8 g/dL (32-36); Mean Corpuscular Hgb 29.2 pg (27.0-32.0); Mean Corpuscular Volume 88.9 fL (81-99); Mean Platelet Vol. 12.7 fl (6.2-12.0); Platelet Count 128 K/mm3 (150-450); RBC Distribution Width CV 14.3 % (11.6-14.6); RBC Distribution Width SD 45.6 fl (35.1-43.9); Red Blood Count 2.98 M/mm3 (4.2-5.4)
--- NOTE | 2023-07-03 08:07 | PCM.PN.OB ---
Subjective Subjective Patient doing well without complaints. Tolerating PO. Ambulating and voiding without difficulty. feeding well. Denies chest pain, shortness of breath, calf pain/swelling, fevers, chills, lightheadedness. Objective Data Objective Data Vital Signs: Vital Signs Temp Pulse Resp BP Pulse Ox O2 Del Method 97.2 F L 93 18 117/78 99 Room Air 07/02/23 21:48 07/03/23 06:29 07/03/23 07:26 07/03/23 06:29 07/03/23 07:26 07/03/23 07:26 Oxygen Delivery Method Room Air Weight: 229 lb 9.6 oz Body Mass Index (BMI) 35.9 Intake & Output: Intake and Output for Last 24 Hours 07/01/23 07/02/23 07/03/23 23:59 23:59 23:59 Intake Total 501.67 / 501.67 5270.72 / 5270.72 690 / 690 Output Total 2970 / 2970 200 / 200 Balance 501.67 / 501.67 2300.72 / 2300.72 490 / 490 Lab / Micro Data 07/03/23 06:35 07/01/23 16:20 Labs: Laboratory Results - last 24 hr 07/02/23 21:45: WBC 23.3 H, RBC 3.80 L, Hgb 10.9 L, Hct 34.0 L, MCV 89.5, MCH 28.7, MCHC 32.1, RDW Std Deviation 46.0 H, RDW Coeff of Shayne 14.6, Plt Count 129 L, MPV 13.1 H, Immature Gran % (Auto) 0.600, Neut % (Auto) 89.1 H, Lymph % (Auto) 4.3 L, [place] % (Auto) 5.8, Eos % (Auto) 0.0, Baso % (Auto) 0.2, Absolute Neuts (auto) 20.7 H, Absolute Lymphs (auto) 1.01, Nucleated RBC % 0, Differential Comment SCANNED 07/03/23 06:35: WBC 20.0 H, RBC 2.98 L, Hgb 8.7 L, Hct 26.5 L, MCV 88.9, MCH 29.2, MCHC 32.8, RDW Std Deviation 45.6 H, RDW Coeff of Shayne 14.3, Plt Count 128 L, MPV 12.7 H ROS Constitutional Constitutional: Reports systems reviewed and no addt'l complaints, except as documented Cardiovascular Cardiovascular: Reports systems reviewed and no addt'l complaints, except as documented Respiratory/Chest Respiratory/Chest: Reports systems reviewed and no addt'l complaints, except as documented Gastrointestinal Gastrointestinal: Reports systems reviewed and no addt'l complaints, except as documented Physical Exam Const alert, oriented x3 and no apparent distress HEENT Head and Scalp: atraumatic Resp normal respiratory effort GI soft to palpation and non-tender Inspection: incision intact, healing well and drainage (none) Bimanual Exam - Vag & Uterus: uterus non-tender Uterus Palpation: uterus fundus firm (below Umbilicus) Assessment & Plan (1) Status post section: PLAN: Plan s/p LTCS PPD # 1 1. routine post care 2. breast feeding- support given 3. rh positive 4. rubella immune repeat cbc
[2023-07-03] MEDS: Enoxaparin 40 MG/0.4 ML Syringe SC (08:32)
[2023-07-03] MEDS: Senna/Docusate Sodium 1 Tablet PO (09:25)
[2023-07-03] MEDS: 0.9% Saline Lock 10 ML Syringe IV ×2 (10:42→15:03)
--- NOTE | 2023-07-03 11:15 | NURSING ---
Reviewed and agree with student charting. Amanda HAWK instructor
[2023-07-03 11:28] LABS: Absolute Lymphocyte Count 1.64 X10^3/uL (0.83-4.51); Absolute Neutrophil Count 16.4 X10^3/uL (2.0-7.7); Basophil# 0.04 X10^3/uL; Basophil% 0.2 % (0-1); Eosinophil# 0.06 X10^3/uL; Eosinophils% 0.3 % (0-5); Hematocrit 26.5 % (37-47); Hemoglobin 8.7 g/dL (12.0-15.0); Lymphocyte # 1.64 X10^3/ul (0.83-4.51); Lymphocyte % 8.5 % (19-41); Mean Corp Hgb Conc 32.8 g/dL (32-36); Mean Corpuscular Hgb 29.1 pg (27.0-32.0); Mean Corpuscular Volume 88.6 fL (81-99); Mean Platelet Vol. 12.9 fl (6.2-12.0); Monocyte# 1.04 X10^3/uL; Monocyte% 5.4 % (0-10); NRBC Flagged by Analyzer 0 % (0-5); Neutrophil # 16.43 X10^3/uL (2.7-7.7); Neutrophil % 84.9 % (47-70); Platelet Count 134 K/mm3 (150-450); RBC Distribution Width CV 14.5 % (11.6-14.6); RBC Distribution Width SD 45.5 fl (35.1-43.9); Red Blood Count 2.99 M/mm3 (4.2-5.4); White Blood Count 19.3 K/mm3 (4.4-11.0)
[2023-07-03] MEDS: Ibuprofen 600 MG Tablet PO ×2 (16:55→23:07)
[2023-07-04 02:00] VITALS: BP 119/74; PULSE 95; RESP 16; TEMP 36.2; O2SAT 97
[2023-07-04] MEDS: Acetaminophen 500 MG Tablet 1000 MG PO ×3 (03:22→14:17)
[2023-07-04] MEDS: Ibuprofen 600 MG Tablet PO ×2 (05:01→11:52)
--- NOTE | 2023-07-04 08:17 | PCM.PN.OB ---
Subjective Subjective Patient doing well without complaints. Tolerating PO. Ambulating and voiding without difficulty. Feeding well. Denies chest pain, shortness of breath, calf pain/swelling, fevers, chills, lightheadedness. Objective Data Objective Data Vital Signs: Vital Signs Temp Pulse Resp BP Pulse Ox O2 Del Method 97.2 F L 95 16 119/74 97 Room Air 07/04/23 02:00 07/04/23 02:00 07/04/23 02:00 07/04/23 02:00 07/04/23 02:00 07/04/23 02:00 Oxygen Delivery Method Room Air Weight: 229 lb 9.6 oz Body Mass Index (BMI) 35.9 Intake & Output: Intake and Output for Last 24 Hours 07/02/23 07/03/23 07/04/23 23:59 23:59 23:59 Intake Total 5270.72 / 5270.72 690 / 690 Output Total 2970 / 2970 300 / 300 Balance 2300.72 / 2300.72 390 / 390 Lab / Micro Data Attestation: I reviewed the patient's lab results. 07/03/23 11:20 07/01/23 16:20 Labs: Laboratory Results - last 24 hr 07/03/23 11:20: WBC 19.3 H, RBC 2.99 L, Hgb 8.7 L, Hct 26.5 L, MCV 88.6, MCH 29.1, MCHC 32.8, RDW Std Deviation 45.5 H, RDW Coeff of Shayne 14.5, Plt Count 134 L, MPV 12.9 H, Immature Gran % (Auto) 0.700, Neut % (Auto) 84.9 H, Lymph % (Auto) 8.5 L, [place] % (Auto) 5.4, Eos % (Auto) 0.3, Baso % (Auto) 0.2, Absolute Neuts (auto) 16.4 H, Absolute Lymphs (auto) 1.64, Nucleated RBC % 0 ROS Constitutional Constitutional: Reports systems reviewed and no addt'l complaints, except as documented; Denies anorexia or headache(s) Cardiovascular Cardiovascular: Reports systems reviewed and no addt'l complaints, except as documented; Denies dizziness, dyspnea, nausea or tachypnea Respiratory/Chest Respiratory/Chest: Reports systems reviewed and no addt'l complaints, except as documented; Denies cough, dyspnea, shortness of breath at rest or tachypnea Gastrointestinal Gastrointestinal: Reports systems reviewed and no addt'l complaints, except as documented; Denies abdominal pain, constipation or nausea Genitourinary Genitourinary: Reports systems reviewed and no addt'l complaints, except as documented; Denies burning urination, difficulty urinating, dysuria, urinary frequency or urinary incontinence Musculoskeletal Musculoskeletal: Reports systems reviewed and no addt'l complaints, except as documented Integumentary Integumentary: Reports systems reviewed and no addt'l complaints, except as documented Neurologic Neurologic: Reports systems reviewed and no addt'l complaints, except as documented; Denies abnormal speech, dizziness or headache(s) Psychiatric Psychiatric: Reports systems reviewed and no addt'l complaints, except as documented Endocrine Endocrinology: Reports systems reviewed and no addt'l complaints, except as documented Hematologic/Lymphatic Hematologic/Lymphatic: Reports systems reviewed and no addt'l complaints, except as documented Physical Exam Const alert, oriented x3 and no apparent distress Neck full ROM Resp normal respiratory effort, normal air movement and no retractions Effort and Inspection: able to speak in complete sentences and symmetric chest movement GI soft to palpation Inspection: incision intact Bladder / Kidney Exam: bladder normal to palpation Uterus Palpation: uterus fundus Extremity normal to inspection and full ROM Psych mental status grossly normal, thought process normal and cooperative Assessment & Plan (1) hemorrhage: (2) Anemia due to blood loss, acute: COMMENT: repeat cbc at 10 am (3) Mild pre-eclampsia: (4) Anxiety: (5) Status post section: COMMENT: 07/02/23 - [place] PLAN: s/p LTCS PPD # 2 1. routine post care 2. breast feeding- support given 3. rh positive 4. rubella immune Charges/Coding Multi Select Codes Urinary/Genital Urinary/Genital CPT Codes: No Charge
[2023-07-04] MEDS: Enoxaparin 40 MG/0.4 ML Syringe SC (09:04)
[2023-07-04] MEDS: Senna/Docusate Sodium 1 Tablet PO (09:06)
[2023-07-04 10:00] VITALS: BP 125/83; PULSE 88; RESP 16; TEMP 36.4
--- NOTE | 2023-07-04 11:39 | CASEMGMT ---
Social Work Assessment Labor and Delivery Unit Patient Address: [address] [place] [address] [address] [place] [address] Phone number: [phone] Date of Referral: 07/03/23 Time of Referral:? 06 Referred By: Lindsay Maharaj Date of Intervention: ??07/04/23 Time of Intervention:? 1100 Reason for Referral:? hx of anxiety, on zoloft Sw completed chart review and acknowledges social work consult due to maternal mental health history positive for anxiety. Sw presented to bedside and introduced self to mother of baby (RICHARD- Dolly) and father of baby (FOSteve- Yandel). Sw explained reason for sw involvement and completed psychosocial assessment. FOB did leave room momentarily while MOB completed [place] Depression Scale. History obtained from: medical records, MOB and FOB Household composition: Currently residing in the family home is RICHARD, OVI and now baby. Patient's parent/guardian status:?Parents state that they attended high school together, and have been together now for almost 6-7 years. [place] baby is first baby for both parents. While meeting with MOB privately, she denies any concerns with domestic violence or intimate partner violence. ? Medical History: ?RICHARD is 27 year old female who is 1, para 0- now 1 following labor and delivery of . RICHARD presented to hospital for induction of labor. RICHARD required unplanned due to failure to progress. Baby boy, named Joann Heath, was born weighing 7lb 10oz at 38 weeks gestation and his apgars were 8 and 9 at one and five minutes of life. RICHARD is breast feeding and states that baby has only wanted to cluster feed over through the night and MOB is tired. MOB states that baby will be followed by Dr. Joe for Pediatrics. Educational Status:? Both parents graduated high school. MOB obtained an associates degree in Occupational Therapy. Financial Status: Both parents are gainfully employed outside of the home. FOSteve works for an [employer] and reports that he is able to take time off of work. MOB is an occupational therapist for [employer]. MOB will return to school to finish up the end of the year and then will have the summer off with baby. Infant Supplies:?? Parents report to obtaining all necessary baby items, including: car seat, safe sleep space, clothes, diapers, wipes and a breast pump. Childcare/Caregiver(s):? MOB will be the primary caregiver to baby along with OVI. When both parents are working they have a building coordinator lined up. OVI states that he is struggling right now to know his place, and what his role is because baby only wants to feed and that is not something that he is able to assist with right now. Sw provided support and education. Sw encouraged parents to have a conversation about things that dad could be doing to help mom. Sw also encouraged dad to hold baby, do skin to skin and diaper changes to give mom a break in between feeds. Parents expressed understanding. Transportation:?? Both parents have their drivers license and reliable means of transportation. No barriers at this time. Programs/Agencies Involved: ?Parents are not connected to any community resources to help them financially at this time as they are over income. ?? Children Services/Legal Issues:?No history of involvement, no issues or concerns warranting a referral to be made at this time. ?? Behavioral Health Issues: ??Mental Health History:?FOSteve denies mental health history. RICHARD states that she has been diagnosed with anxiety and depression. RICHARD states that she is currently prescribed sertraline to help manager music her mental health symptoms. RICHARD acknowledges that she is familiar with signs and symptoms of baby blues and depression and anxiety to be on the lookout for. RICHARD completed [place] Depression Scale, her score was a 7. Sw provided education and support. ?? Substance Use History:?RICHARD denies substance use prior to and during . ? Family History:?Parents deny family history of addiction or significant mental health diagnoses. ? Drug Screens: No urine screens observed in chart review. ?? Family/Social Stressors:? The only concern that parents express at this time is concern that MOB may experience symptoms and concern for how much baby is cluster feeding and how draining it is. Sw provided education and support. Sw encouraged MOB to follow up with supports post discharge. RICHARD states that she is open to this and does have an appointment already scheduled for Friday. Support Systems: Parents state that they have a lot of family who are supportive. Depression/Shaken Baby/Safe Sleeping:? Sw educated parents on signs and symptoms of baby blues and depression and anxiety to be on the lookout for. Sw provided parents with literature for their review and a list of [place] resources for them to utilize if MOB were to struggle and have questions about mental health resources that are available to them. Sw educated parents on shaken baby prevention and ABCs of safe sleep. Parents expressed understanding. ASSESSMENT:? MOB and baby admitted following labor and delivery of . Parents acknowledge sleep deprivation and struggles that are already facing with baby cluster feeding and how overwhelming it can be. Parents made good eye contact and participated actively in psychosocial assessment. MOB observed to provide loving and appropriate hands on care with baby.FOB expressing desire to help but not sure what he is able to do to help at this time. Parents encouraged to talk to each other and have good communication. Parents were appreciative and receptive to sw involvement and support. PLAN:? MOB and baby to be discharged when medically ready. ?No other services requested or indicated. Dinh Mendez, OUTPATIENT PROGRAM COORDINATOR, YIELD LOSS INSPECTOR
--- NOTE | 2023-07-04 12:33 | PCM.DC.SUM ---
Providers Date of Admission: 07/01/23 Date of Discharge: 07/04/23 Primary Care Physician: Sarika Key PA-C Consultations 07/01/23 17:26 Consult: Anesthesia Routine Comment: Reason For Exam: Labor Reason for Consult: epidural EMERGENT Consult: No MD Notified: No Date Notified: 07/01/23 Time Notified: 17:26 Reason For Visit: Diagnosis Discharge Diagnosis (1) hemorrhage: Status: Acute Code(s): O72.1 - Other immediate hemorrhage (2) Anemia due to blood loss, acute: Status: Acute Code(s): D62 - Acute posthemorrhagic anemia (3) Mild pre-eclampsia: Status: Acute Code(s): O14.00 - Mild to moderate pre-eclampsia, unspecified trimester (4) Anxiety: Status: Acute Code(s): F41.9 - Anxiety disorder, unspecified (5) Status post section: Status: Inactive Code(s): Z98.891 - History of uterine scar from previous surgery Plan: s/p LTCS PPD # 2 1. routine post care 2. breast feeding- support given 3. rh positive 4. rubella immune Medications at Discharge Home Medications multivit-min no.71-iron fum 28 mg-folate no.1 1 mg-dha 300 mg capsule (PNV-Red Cloud) 1 cap PO DAILY 12/10/22 sertraline 25 mg tablet 25 mg PO DAILY 12/10/22 cyclobenzaprine 10 mg tablet 10 mg PO TID PRN muscle spasm #30 tabs 04/21/23 breast pump #1 ea 05/07/23 ibuprofen 800 mg tablet 800 mg PO Q8H PRN pain #30 tabs 07/02/23 ibuprofen 600 mg tablet 600 mg PO Q6H #30 tabs 07/04/23 oxycodone 5 mg tablet 5 - 10 mg (1 - 2 x 5 mg) PO Q4H PRN PRN Pain Score 4-10 3 days #10 tabs 07/04/23 Hospital Course Operations section Procedures None Summary of Care Provided Hospital Course: primary c/s for FTP. uneventful course. discharge home Physical Exam Const alert Resp normal respiratory effort, no retractions and no use of accessory muscles GI normal to inspection, nondistended, normoactive bowel sounds Inspection: incision intact Extremity normal to inspection, full ROM and no calf tenderness Skin no rashes or lesions noted Neuro moves all extremities Psych mental status grossly normal Weight / BMI Weight Weight: 229 lb 9.6 oz Body Mass Index (BMI) 35.9 ABG / Lab / Microbiology Data 07/03/23 11:20 07/01/23 16:20 D/C Instructions Discharge Diet: No restrictions May resume sexual activity in: 4-6 weeks Weight Bearing Status: Full weight bearing Call your doctor if your incision/area has: Continuous Slow Oozing, Sudden Increased Bleeding, Increased Pain/ Swelling, Increased Redness and Foul Smelling Discharge Call your doctor if you observe: Fever of 101 or Higher and Using more than 1 pad per hour Suture Line Care: Avoid Pulling/Pushing and Avoid Pinching/Bending Cleanse incision/area with: Soap & Water and Keep Dressing Clean & Dry Please Follow Up With: Lindsay Maharaj DO When: Call [phone] to make an appointment for an incision check in 1-2 weeks. Meaningful Use Info Meaningful Use Diagnoses (Choose all that apply): None applicable Discharge Plan Admission Admit Date/Time: 07/01/23 17:20 Primary Reason for Your Visit: section Attending Provider: Lindsay Maharaj Primary Care Provider: Sarika Key Discharge Orders/Prescriptions Prescriptions: New ibuprofen 800 mg tablet 800 mg PO Q8H PRN (Reason: pain) Qty: 30 0RF ibuprofen 600 mg Tablet 600 mg PO Q6H Qty: 30 0RF oxycodone 5 mg Tablet 5 - 10 mg PO Q4H PRN PRN (Reason: Pain Score 4-10) 3 Days Qty: 10 0RF Continued sertraline 25 mg tablet 25 mg PO DAILY PNV-Red Cloud 28-1-300 mg capsule 1 cap PO DAILY (DME) breast pump Device See Rx Instructions .ROUTE .MEDSUPPLY Qty: 1 0RF Rx Instructions: As directed cyclobenzaprine 10 mg tablet 10 mg PO TID PRN (Reason: muscle spasm) Qty: 30 0RF Referrals / Follow Up: Sarika Key PA-C [Primary Care Provider] - Disposition Disposition (needs filled in before D/C Order can be placed): Home, Self Care
[2023-07-04 13:38] VITALS: BP 139/87; PULSE 97; RESP 16; TEMP 36.2
--- NOTE | 2023-07-08 16:07 | NURSING ---
Follow up phone call done. Patient is doing well since being home, vaginal bleeding is getting better. C section incision is healing well. Patients denies any issues with headaches or visual disturbances. States she is doing well with pumping and bottle feeding expressed breastmilk every 2-3 hours. States Crew is taking about 2 oz per feeding. States that she understood all of her discharge instructions. Discussed Baby Blues at length with patient, and instructed her to call OB if not getting gradually better over the next few days. Stated her stay was great.
== END 2023-07-04 15:45 | disposition home or self-care (01) | DRG 787 ==
LOC: WPOUT 17:24 → WP 17:24
PROVIDERS: Advanced Practice Midwife; Obstetrics & Gynecology; Admitting Provider Obstetrics & Gynecology; PCP Family Medicine; Referring Provider Obstetrics & Gynecology; Visit Provider Obstetrics & Gynecology
DX: O61.0 Failed medical induction of labor (principal); D62 Acute posthemorrhagic anemia; O99.12 Other diseases of the blood and blood-forming organs and certain disorders involving the immune mechanism complicating childbirth; O72.1 Other immediate postpartum hemorrhage; D69.6 Thrombocytopenia, unspecified; F41.9 Anxiety disorder, unspecified; O14.04 Mild to moderate pre-eclampsia, complicating childbirth; Z3A.38 38 weeks gestation of pregnancy; O99.824 Streptococcus B carrier state complicating childbirth; O99.344 Other mental disorders complicating childbirth; O90.81 Anemia of the puerperium; Z37.0 Single live birth; O69.81X0 Labor and delivery complicated by cord around neck, without compression, not applicable or unspecified
CPT/HCPCS: 59025; 59050; 82565; 82570; 84156; 84450; 84460; 84550; 85025; 85027; 86780; 86850; 86900; 86901; 99221; J7120; A4216; G0378; J2405

== ENCOUNTER → 2023-07-16 | Outpatient (CLI) | payer OTHER, SELFPAY ==
--- OUTSIDE RECORDS SUMMARY | 2023-07-16 10:32 | XMS RPT_ITS | CCD ---
Author Name Unknown Address [address] [place] [address] Organization [facility] Care Team Providers Care Valver Name Role Phone [facility] Unavailable Unavaila ble NILS, [facility] Unavailable Unavaila ble NILS, [facility] Unavailable Unavaila ble JEREMY, KERRIE E Unavailable Unavailable PROVIDER, UNKNOWN Unavailable Unavailable PROVIDER, UNKNOWN Unavailable Unavailable PROVIDER, UNKNOWN Unavailable Unavailable NO PRIMARY CARE, Primary Care Unavailable STAN LOWERY Attending Unavailable SHIRLENE HILL Referring Unavailab le Results Test Name Value Interpretation Reference Range Facil ity Encounters Encounter Date Encounter Type Care Provider Facility Start: 02-25-2023 End: 02-25-2023 ambulatory NO PRIMARY CARE [facility] Start: 04-17-2018 End: 04-17-2018 Patient encounter procedure [facility] Payers Date Payer Category Payer Unknown [id number] Unknown [id number] Summary Purpose Family History No Family History Records FoundNo Family History Records FoundNo Family History Records FoundNo Family History Records Found Advance Directives No Advanced Directives Records FoundNo Advanced Directives Records FoundNo Advanced Directives Records FoundNo Advanced Directives Records Found Additional Source Comments INFORMATION SOURCE (unrecogn ized section and content) DATE CREATED AUTHOR AUTHOR'S ORGANIZ ATION 04/14/2020 [facility] DATE CREATED AUTHOR AUTHOR'S ORGANIZ ATION 04/01/2021 [facility] DATE CREATED AUTHOR AUTHOR'S ORGANIZ ATION 03/05/2023 [facility] FOR RECORDS PERTAINING TO PATIENTS WHO [...] BE BASED ON THE PRIMARY CLINICAL RECORDS. [facility] [employer] [facility]. provides no warranty or guarantee of the accuracy or completeness of information in this document.
[2023-07-16 11:17] LABS: Absolute Lymphocyte Count 2.18 X10^3/uL (0.83-4.51); Basophil# 0.08 X10^3/uL; Basophil% 0.9 % (0-1); Eosinophil# 0.28 X10^3/uL; Eosinophils% 3.1 % (0-5); Hematocrit 36.3 % (37-47); Hemoglobin 11.1 g/dL (12.0-15.0); Lymphocyte # 2.18 X10^3/ul (0.83-4.51); Lymphocyte % 24.2 % (19-41); Mean Corp Hgb Conc 30.6 g/dL (32-36); Mean Corpuscular Hgb 27.7 pg (27.0-32.0); Mean Corpuscular Volume 90.5 fL (81-99); Mean Platelet Vol. 10.8 fl (6.2-12.0); Monocyte% 5.5 % (0-10); NRBC Flagged by Analyzer 0 % (0-5); Neutrophil # 5.95 X10^3/uL (2.7-7.7); Neutrophil % 66.1 % (47-70); Platelet Count 473 K/mm3 (150-450); RBC Distribution Width CV 13.2 % (11.6-14.6); RBC Distribution Width SD 43.9 fl (35.1-43.9); Red Blood Count 4.01 M/mm3 (4.2-5.4)
== END | disposition home or self-care (01) ==
LOC: LAB 10:04
PROVIDERS: PCP Family Medicine; Referring Provider Nurse Practitioner Women's Health; Visit Provider Nurse Practitioner Women's Health
DX: D62 Acute posthemorrhagic anemia (principal)
CPT/HCPCS: 36415; 85025